=== PATIENT | male | born 1995 | race African-American/Black ===

== ENCOUNTER 2019-08-12 03:00 | Inpatient (IN) | payer BC, MEDICAID ==
[~2019-08-12] VITALS: Ht 182.9 cm; Wt 88.5 kg
[~2019-08-12 03:00] MED LIST: INSLISPI SC; LEVEMIR SC
[2019-08-12] MEDS ORDERED: ACETAMINOPHEN 325 MG TAB PO ONE (04:00)
[2019-08-12 04:26] LABS: Urine Bacteria NONE SEEN /hpf (None Seen); Urine Blood Negative /uL (Negative); Urine Hyaline Cast FEW /lpf (0 - 2); Urine Specific Gravity 1.021 (1.001-1.035); Urine WBC <1 /hpf (0 - 3)
[2019-08-12] MEDS ORDERED: DEXTROSE 50% SYRINGE 50 ML IV ONE (04:33)
[2019-08-12 04:37] LABS: Basophils # (auto) 0 10 ^3/uL (0-0.2); Basophils % (auto) 0.4 % (0.0-2.0); Eosinophils # (auto) 0 10 ^3/uL (0-0.8); Eosinophils % (auto) 0.7 % (0.0-7.0); Hematocrit 41.8 % (41.0-53.0); Lymphocytes # (auto) 2.1 10 ^3/uL (0.4-5.4); Lymphocytes % (auto) 43.1 % (10.0-50.0); Mean Corpuscular Hemoglobin 30.1 pg (28.0-32.0); Mean Corpuscular Hgb Conc. 33.4 g/dL (32.0-36.0); Mean Corpuscular Volume 90.1 fL (80.0-100.0); Monocytes # (auto) 0.5 10 ^3/uL (0-1.3); Monocytes % (auto) 9.6 % (0.0-12.0); Neutrophils # (auto) 2.2 10 ^3/uL (1.6-8.6); Neutrophils % (auto) 46.2 % (37.0-80.0); Nucleated Red Blood Cells % 0.2 %; Platelet Count (auto) 256 10^3/uL (140-450); Red Blood Cells 4.64 10^6/uL (4.5-5.90); Red Cell Distribution Width 13.2 % (11.8-14.3); White Blood Cell 4.9 10^3/uL (4.4-10.8)
[2019-08-12] MEDS ORDERED: DEXTROSE 10% 1,000 ML IV ONE ×2 (04:39→05:00)
[2019-08-12] MEDS ORDERED: DEXTROSE (50%) 50ML SYRG IV ONE (04:45)
[2019-08-12 04:50] LABS: Albumin 3.5 g/dL (3.4-5.0); Anion Gap 6 (5-15); Blood Urea Nitrogen 16 mg/dL (7-18); Calcium 8.5 mg/dL (8.5-10.1); Carbon Dioxide 27 mmol/L (21-32); Chloride 106 mmol/L (98-107); Glucose 62 mg/dL (74-106); Potassium 3.9 mmol/L (3.5-5.1); Sodium 139 mmol/L (136-145)
[2019-08-12 04:56] LABS: Alanine Aminotransferase 25 U/L (16-61); Alkaline Phosphatase 81 U/L (45-117); Aspartate Aminotransferase 30 U/L (15-37); BUN/Creatinine Ratio 13.7; Bilirubin, Total 0.3 mg/dL (0.2-1.0); GFR African American 100 mL/min; GFR Non-African American 83 mL/min; Total Protein 7.1 g/dL (6.4-8.2)
[2019-08-12] MEDS ORDERED: PROMETHAZINE HCL 25 MG/ML 1ML ONE (04:59)
[2019-08-12] MEDS ORDERED: PROMETHAZINE HCL 25 MG/ML 1ML IV ONE (05:00)
[2019-08-12] MEDS ORDERED: SODIUM CHLORIDE 0.9% 1,000 ML IV ONE (05:00)
[2019-08-12] MEDS ORDERED: SODIUM CHLORIDE 0.9% 1,000 ML IV SCH (07:08)
[2019-08-12] MEDS ORDERED: ACETAMINOPHEN 325 MG TAB PO PRN (07:15)
[2019-08-12] MEDS ORDERED: ONDANSETRON HCL 4 MG/2 ML VIAL IV PRN (07:15)
[2019-08-12] MEDS ORDERED: DOCUSATE SOD 100 MG CAP PO PRN (07:15)
[2019-08-12] MEDS ORDERED: MORPHINE SULF INJ 2 MG/ML SYRINGE 1ML IV PRN (07:15)
[2019-08-12] MEDS ORDERED: HYDROcodone-ACET 5/325MG TAB PO PRN (07:15)
[2019-08-12] MEDS ORDERED: DEXTROSE (50%) 50ML SYRG IV PRN (07:15)
[2019-08-12] MEDS: ACCU-CHEK COMFORT CURVE STRIP VI SCH ×4 (07:15→10:19)
[2019-08-12 07:36] LABS: Calcium 8.5 mg/dL (8.5-10.1); Potassium 3.9 mmol/L (3.5-5.1)
[2019-08-12 07:57] LABS: Basophils # (auto) 0 10 ^3/uL (0-0.2); Basophils % (auto) 0.3 % (0.0-2.0); Eosinophils # (auto) 0 10 ^3/uL (0-0.8); Eosinophils % (auto) 0.2 % (0.0-7.0); Hematocrit 43.1 % (41.0-53.0); Hemoglobin 14.4 g/dL (13.5-17.5); Lymphocytes # (auto) 1.1 10 ^3/uL (0.4-5.4); Lymphocytes % (auto) 22.8 % (10.0-50.0); Mean Corpuscular Hemoglobin 29.9 pg (28.0-32.0); Mean Corpuscular Hgb Conc. 33.4 g/dL (32.0-36.0); Mean Corpuscular Volume 89.6 fL (80.0-100.0); Monocytes # (auto) 0.2 10 ^3/uL (0-1.3); Monocytes % (auto) 5.1 % (0.0-12.0); Neutrophils # (auto) 3.4 10 ^3/uL (1.6-8.6); Neutrophils % (auto) 71.6 % (37.0-80.0); Nucleated Red Blood Cells % 0.1 %; Platelet Count (auto) 264 10^3/uL (140-450); Red Blood Cells 4.81 10^6/uL (4.5-5.90); Red Cell Distribution Width 12.9 % (11.8-14.3); White Blood Cell 4.7 10^3/uL (4.4-10.8)
[2019-08-12 09:32] VITALS: BP 116/64
== END 2019-08-12 11:24 | disposition left against medical advice (07) | DRG 420 ==
LOC: EDBD 03:00 → ER 03:03 → OVERFLOW 03:04
PROVIDERS: ADMIT Hospitalist; ATTEND Internal Medicine
DX: E10.649 Type 1 diabetes mellitus with hypoglycemia without coma (principal); K52.9 Noninfective gastroenteritis and colitis, unspecified; Z79.4 Long term (current) use of insulin; Z53.29 Procedure and treatment not carried out because of patient's decision for other reasons
CPT/HCPCS: 36415; 74176; 80048; 80053; 81001; 82010; 82962; 83036; 84484; 85025; 93005; 96374; 96375; 99291; G0378